=== PATIENT | male | born 1995 | race Two or more races ===

== ENCOUNTER 2021-01-09 13:00 | Emergency (ER) | payer MEDICAID ==
[~2021-01-09] VITALS: Ht 165.1 cm; Wt 65.8 kg
[2021-01-09] MEDS ORDERED: HYDROmorphone 4mg tab ORAL ONE (13:15)
[2021-01-09] MEDS ORDERED: Piperacillin/Tazobactam 3.375 GM in NS 110 ML IV ONE (13:15)
[2021-01-09] MEDS ORDERED: Vancomycin 1 GM in NS 275 ML IVPB ONE (13:15)
[2021-01-09] MEDS ORDERED: Tetanus/Diptheria/Pertussis IM ONE (13:15)
--- NOTE | 2021-01-09 13:15 | NUR ---
came to er complaints of injury to lrft index finger 3 days ago now finger is infected and swelling witing for md shabazz
--- NOTE | 2021-01-09 13:16 | Emergency Room Report ---
History of Present Illness General Chief Complaint: Upper Extremity Injury Source: Patient, Friend Present Illness HPI Patient presents with left index finger and hand pain. He stabbed himself with a leather all in the index finger. This was 3 days ago. There is swelling and increased pain over the last 24 to 48 hours. He denies any numbness. Its been greater than 10 years since his last tetanus shot. The patient is right-handed. Pain is rated 10/10 radiating somewhat towards his wrist. No fevers or chills. He was not drinking alcohol that night. 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 No sore throat, chest pain, palpitations, nausea, vomiting, diarrhea, dysuria, abdominal pain, shortness of breath, depression, anxiety, visual changes, dizziness, headache. Patient has a history of back problems. He was last admitted 5 years ago. He states that morphine does not work well for him. 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 is from [place] Reviewed Nursing Documentation: PMH: Agreed; PSxH: Agreed Nursing Documentation-PM Past Medical History: No Stated History Review of Systems All Other Systems: negative except mentioned in HPI Physical Exam Vital Signs Date Time Temp Pulse Resp B/P (MAP) Pulse Ox O2 Delivery O2 Flow Rate FiO2 01/09/21 13:02 98.8 82 18 140/80 (100) 98 Room Air Sp02 EP Interpretation: reviewed, normal General Appearance: well appearing, no apparent distress, GCS 15, non-toxic Head: normocephalic Eyes: bilateral eye normal inspection, bilateral eye PERRL, bilateral eye EOMI ENT: moist mucus membranes Neck: supple Respiratory: lungs clear, normal breath sounds Cardiovascular #1: regular rate, rhythm Cardiovascular #2: 2+ radial (R) Gastrointestinal: normal inspection, normal bowel sounds, non tender, no mass, non-distended Musculoskeletal: back normal, gait/station normal, swelling - tender L index f lori with Kanavel's triad Neurologic: alert, distal neuro normal - except for decreased ROM of L index fi nger, oriented x3 Psychiatric: mood/affect normal Skin: warm/dry, other - erythema L hand and index finger Medical Decision Making Diagnostic Impression: Primary Impression: Suppurative tenosynovitis of flexor tendon of left hand ER Course Patient presents with left index finger pain after puncture wound. Based on the physical exam the patient has Kanavel's triad which suggest infectious flexor tenosynovitis. Patient needs evaluation with blood cultures and labs. In addition x-ray will be performed. The patient needs IV hydration, analgesia and antibiotics. This most likely needs to be taken care of by a hand surgeon. As we do not have one supervisor customer records division we will attempt to transfer the patient to [facility]. White count elevated. Covid antigen negative. X-ray without foreign body but soft tissue swelling. Elevated C-reactive protein. Lactic acid normal. Patient still with increased pain. Dilaudid repeated. Discussed with Dr. Callahan at [facility] who accepts patient. He wants the patient n.p.o. for possible going to the operating room at this time. Laboratory Tests Test 01/09/21 13:10 01/09/21 14:17 White Blood Count 15.0 K/UL (4.8-10.8) H Red Blood Count 4.57 M/UL (4.70-6.10) L Hemoglobin 14.1 G/DL (14.2-18.0) L Hematocrit 41.1 % (42.0-52.0) L Mean Corpuscular Volume 90 FL (80-99) Mean Corpuscular Hemoglobin 30.8 PG (27.0-31.0) Mean Corpuscular Hemoglobin Concent 34.2 G/DL (32.0-36.0) Red Cell Distribution Width 11.9 % (11.6-14.8) Platelet Count 226 K/UL (150-450) Mean Platelet Volume 10.7 FL (6.5-10.1) H Neutrophils (%) (Auto) 78.6 % (45.0-75.0) H Lymphocytes (%) (Auto) 12.6 % (20.0-45.0) L Monocytes (%) (Auto) 8.1 % (1.0-10.0) Eosinophils (%) (Auto) 0.3 % (0.0-3.0) Basophils (%) (Auto) 0.4 % (0.0-2.0) Prothrombin Time 10.3 SEC (9.30-11.50) Prothrombin Time INR 0.9 (0.9-1.1) Activated Partial Thromboplast Time 29 SEC (23-33) Sodium Level 136 MMOL/L (136-145) Potassium Level 3.7 MMOL/L (3.5-5.1) Chloride Level 101 MMOL/L (98-107) Carbon Dioxide Level 27 MMOL/L (21-32) Anion Gap 8 mmol/L (5-15) Blood Urea Nitrogen 9 mg/dL (7-18) Creatinine 1.0 MG/DL (0.55-1.30) Estimated Glomerular Filtration Rate > 60 mL/min (>60) Glucose Level 106 MG/DL (74-106) Lactic Acid Level 1.70 mmol/L (0.4-2.0) Calcium Level 8.9 MG/DL (8.5-10.1) Total Bilirubin 0.4 MG/DL (0.2-1.0) Aspartate Amino Transferase (AST) 12 U/L (15-37) L Alanine Aminotransferase (ALT) 20 U/L (12-78) Alkaline Phosphatase 98 U/L (46-116) Total Creatine Kinase 68 U/L (26-308) C-Reactive Protein, Quantitative 6.6 mg/dL (0.00-0.90) H Total Protein 7.2 G/DL (6.4-8.2) Albumin 3.9 G/DL (3.4-5.0) Globulin 3.3 g/dL Albumin/Globulin Ratio 1.2 (1.0-2.7) Urine Color Pale yellow Urine Appearance Clear Urine pH 8 (4.5-8.0) Urine Specific [place] 1.010 (1.005-1.035) Urine Protein Negative (NEGATIVE) Urine Glucose (UA) Negative (NEGATIVE) Urine Ketones Negative (NEGATIVE) Urine Blood Negative (NEGATIVE) Urine Nitrite Negative (NEGATIVE) Urine Bilirubin Negative (NEGATIVE) Urine Urobilinogen Normal MG/DL (0.0-1.0) Urine Leukocyte Esterase Negative (NEGATIVE) Microbiology Date/Time Source Procedure Growth Status 01/09/21 13:20 Nasopharynx SARS-CoV-2 Antigen (Rapid)([facility]) - Final Complete Other X-Ray Diagnostic Results Other X-Ray Diagnostic Results : X-Ray ordered: L hand # of Views/Limited Vs Complete: 3 View Indication: Other EP Interpretation: Yes Interpretation: no dislocation, no fractures, other - STS and no FB Impression: Other Electronically Signed by: Electronically signed by Melchor Meeks MD Last Vital Signs Date Time Temp Pulse Resp B/P (MAP) Pulse Ox O2 Delivery O2 Flow Rate FiO2 01/09/21 17:02 98.2 78 16 120/80 98 Room Air Status: improved Disposition: SHORT-TERM HOSP Condition: Serious Referrals: NOT CHOSEN IPA/,REFERRING (PCP) Melchor Meeks MD Jan 09, 2021 13:16
[2021-01-09 13:28] LABS: BASOPHILS % (AUTO) 0.4 % (0.0-2.0); EOSINOPHILS % (AUTO) 0.3 % (0.0-3.0); HEMATOCRIT 41.1 % (42.0-52.0); HEMOGLOBIN 14.1 G/DL (14.2-18.0); LYMPHOCYTES % (AUTO) 12.6 % (20.0-45.0); MEAN CORPUSCULAR VOLUME 90 FL (80-99); MONOCYTES % (AUTO) 8.1 % (1.0-10.0); NEUTROPHILS % (AUTO) 78.6 % (45.0-75.0); PLATELET COUNT 226 K/UL (150-450); RED BLOOD COUNT 4.57 M/UL (4.70-6.10); RED CELL DISTRIBUTION WIDTH 11.9 % (11.6-14.8)
[2021-01-09 13:35] VITALS: BP 152/87
[2021-01-09 13:35] LABS: ANION GAP 8 mmol/L (5-15); BLOOD UREA NITROGEN 9 mg/dL (7-18); CALCIUM 8.9 MG/DL (8.5-10.1); CARBON DIOXIDE 27 MMOL/L (21-32); CHLORIDE 101 MMOL/L (98-107); POTASSIUM 3.7 MMOL/L (3.5-5.1); SODIUM 136 MMOL/L (136-145)
[2021-01-09 13:36] LABS: INR 0.9 (0.9-1.1)
--- NOTE | 2021-01-09 13:36 | NUR ---
clinicals faxed to [facility]
--- NOTE | 2021-01-09 13:38 | NUR ---
pt arrived. states hit hand with work tool (small pointed hammer) 3 days ago. increasingly red & swollen, tender, edematous. 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 pt has L swollen hand, tenderness, minimal movement in L digits, cap refill <3 sec. pt states numbness in L hand. pt denies pmh. denies allergies to medication, just does not want morphine (but no actual allergy). pt french speaking primarily, used family to interpret per pt request. IV placed, blood sent with cultures, covid swab sent. pt placed on continuous cardiac/O2 monitor. pt medicated per eMAR. will continue to monitor.
[2021-01-09 13:40] LABS: ALANINE AMINOTRANSFERASE 20 U/L (12-78); ALBUMIN 3.9 G/DL (3.4-5.0); ALBUMIN/GLOBULIN RATIO 1.2 (1.0-2.7); ALKALINE PHOSPHATASE 98 U/L (46-116); ASPARTATE AMINO TRANSFERASE 12 U/L (15-37); BILIRUBIN,TOTAL 0.4 MG/DL (0.2-1.0); CREATINE KINASE 68 U/L (26-308)
--- NOTE | 2021-01-09 13:50 | Diagnostic Imaging Report ---
EXAM: XR Left Hand, 3 Views CLINICAL HISTORY: OSTEOMY TECHNIQUE: Frontal, lateral, and oblique views of the left hand. COMPARISON: No relevant prior studies available. FINDINGS: Bones/joints: Unremarkable. No visible displaced fracture. No dislocation. No osseous erosions. Visualized joint spaces appear unremarkable. Soft tissues: Soft tissue swelling overlying the hand. No radiopaque foreign body. IMPRESSION: Soft tissue swelling overlying the hand. No visible fracture or dislocation. No osseous erosions.
[2021-01-09 14:22] VITALS: BP 143/79
[2021-01-09 14:23] LABS: APPEARANCE,URINE CLEAR; BILIRUBIN, URINE NEGATIVE (NEGATIVE); COLOR,URINE PALE YELLOW; GLUCOSE, URINE (UA) NEGATIVE (NEGATIVE); KETONES,URINE NEGATIVE (NEGATIVE); LEUKOCYTE ESTERASE ,URINE NEGATIVE (NEGATIVE); NITRITE,URINE NEGATIVE (NEGATIVE); PH,URINE 8 (4.5-8.0); PROTEIN,URINE NEGATIVE (NEGATIVE); UROBILINOGEN,URINE NORMAL MG/DL (0.0-1.0)
[2021-01-09] MEDS ORDERED: HYDROmorphone 1mg/ml Carpuject IVP ONE (14:30)
--- NOTE | 2021-01-09 15:09 | NUR ---
PATIENT HAS BEEN ACCEPTED AT [facility] BY DR RADHA DELEON . PATIENT WILL BE TRANSFERD TO [place] [id number]
[2021-01-09 15:26] VITALS: BP 123/85
--- NOTE | 2021-01-09 15:27 | NUR ---
pt signed transfer consent. pt on continuous cardiac/O2 monitor. pt medicated per eMAR for pain. pt NPO since 0500 this morning.
[2021-01-09 16:56] VITALS: BP 129/84
--- NOTE | 2021-01-09 16:57 | NUR ---
[facility] at bedside for pt transfer. charge account identification clerk alice calling report to [facility]. pt leaving with all belongings.
--- NOTE | 2021-01-09 17:01 | NUR ---
report given to darrion sandoval at [facility] med cter . transported via [facility]
[2021-01-09 17:02] VITALS: BP 120/80
--- NOTE | 2021-01-09 17:04 | NUR ---
called emergency contact to give update on transfer, per pt request.
== END 2021-01-09 17:04 | disposition short-term general hospital (02) ==
LOC: EMR 13:14
DX: M65.9 Synovitis and tenosynovitis, unspecified (principal)
CPT/HCPCS: 36415; 73130; 80053; 81003; 82550; 83605; 85025; 85610; 85730; 86140; 87040; 90471; 90715; 96361; 96365; 96367; 96375; J1170; J2405; J2543; J3370; J7030; J7050; Z7502; 99285